=== PATIENT | female | born 1950 | race Caucasian/White ===

== ENCOUNTER 2022-05-06 11:21 | Outpatient (CLI) | payer OTHER, SELFPAY ==
[2022-05-06] MEDS: TETRACAINE 0.5% OPHTH 1 DROP EYE-RIGHT ×2 (11:56→12:28)
[2022-05-06] MEDS: BRIMONIDINE TARTRATE 0.2% OPHTH 1 DROP EYE-RIGHT ×2 (11:58→12:40)
[2022-05-06 12:01] VITALS: BP 149/77; RESP 16; O2SAT 97
--- NOTE | 2022-05-06 15:17 | P.PCN_ITS ---
Procedure Note Will [facility] bill your pro fee for this procedure?: Yes Procedure: SURGEON: Mary Ann Tompkins MD PREOPERATIVE DIAGNOSIS: Posterior capsular opacity, right eye POSTOPERATIVE DIAGNOSIS: Posterior capsular opacity, right eye PROCEDURE: YAG laser capsulotomy, right eye ANESTHESIA: Topical. ESTIMATED BLOOD LOSS: None PATHOLOGY SPECIMEN: None COMPLICATIONS: None INDICATIONS: See consult note for details. The risks, benefits and alternatives of the procedure were explained to the patient, who elected to proceed and signed informed consent to do so. PROCEDURE: The patient was brought to the pre-holding area where the right eye was identified as the operative eye. I placed my initials above this eye. The patient received 2 sets of 1 drop of 0.5% tetracaine and 1 drop of 1% tropicamide. They also received 1 drop of 0.2% brimonidine. They received 1 drop of 0.5% tetracaine immediately prior to bringing them back for the procedure. The patient was then brought to the procedure room where the right eye was again identified as the operative eye. A YAG Abdulaziz capsulotomy lens was placed on the eye. The laser was administered using a total number of 7 shots with an energy of 2.4 mJ per shot for a total energy of 17 mJ. The patient tolerated the procedure well. DISPOSITION: The patient was taken back to the pre-holding area and given 1 drop of 0.2% brimonidine in the right eye. They were discharged to home in stable condition. The patient was instructed to call me or go to the emergency department with any sudden change, including dramatic loss of vision, severe pain in the eye or eyebrow region, nausea, or vomiting. The patient was instructed to use the 0.2% brimonidine 1 drop 2 times a day in the right eye for 1 week. The patient will follow up in the clinic in 1-2 weeks.
== END 2022-05-06 12:41 | disposition home or self-care (01) ==
PROVIDERS: PCP Internal Medicine; Visit Provider Ophthalmology
DX: H26.9 Unspecified cataract (principal)
CPT/HCPCS: 66821; A9270

== ENCOUNTER 2022-05-14 11:04 | Outpatient (CLI) | payer OTHER, SELFPAY ==
--- NOTE | 2022-05-14 11:20 | CRLHL7_ITS ---
For Patients: As a result of the Century Cures Act, medical imaging exams and procedure reports are released immediately into your electronic medical record. You may view this report before your referring provider. If you have questions, please contact your health care provider. BILATERAL MAMMOGRAM WITH COMPUTER-AIDED DETECTION TECHNIQUE: CC and MLO views were obtained. These mammographic images have been obtained using full-field digital technique. These mammographic images were interpreted with the benefit of computer-aided detection. COMPARISON FILM: 10/04/2018. FINDINGS: The breasts are almost entirely fatty IMPRESSION: There is no radiographic evidence for malignancy. ASSESSMENT: BI-RADS Category 2: Benign RECOMMENDATION: Routine screening mammogram in 1 year. A lay language report of this examination will be provided to the patient. Surjit Heck M.D. Diagnostic Radiologist [email or web address] ARNIE/jjennifer jjennifer/Dictated by: Surjit Heck MD @ 05/26/2022 12:15:00 PM (Electronically Signed)
== END 2022-05-14 11:05 | disposition home or self-care (01) ==
LOC: MAMMO 11:05
PROVIDERS: PCP Internal Medicine; Visit Provider Internal Medicine
DX: Z12.31 Encounter for screening mammogram for malignant neoplasm of breast (principal); R92.2 Inconclusive mammogram
CPT/HCPCS: 77063; 77067

== ENCOUNTER 2024-05-04 06:19 | Day surgery (SDC) | payer OTHER, SELFPAY ==
[2024-05-04] VITALS (10 sets, daily range): BP systolic 112–135; BP diastolic 57–67; PULSE 60–71; RESP 16; TEMP 37.2–37.3; O2SAT 94–98; BMI 31.7
[2024-05-04] MEDS: BUPIVACAINE 0.5 %/EPI 1:200K INJECTION (06:00)
--- OUTSIDE RECORDS SUMMARY | 2024-05-04 06:22 | XMS_ITS | Clinical Summary ---
Author Organization [facility] Address [place], [place] [address] Care Team Providers Care Director Of Strategic Partnerships Name Role Phone Pcp, No Primary Care Provider Unavailabl e Allergies Active Allergy Reactions Criticality Noted Date Comments Codeine 10/27/2006 Codeine Shortness Of Breath 05/14/2010 Eucalyptus Itching 01/11/2011 Cephalexin 10/27/2006 Escitalopram Other - Describe In Comment Field 04/25/2007 muscle cramping Medications Medication Sig Dispensed Refills Start Date End Date Status cetirizine (ZyrTEC) 10 mg tabletIndications: Environmental allergies Take 1 Tablet (10 mg) by mouth once daily. 90 tablet. 3 05/05/2021 Active traZODone (DESYREL) 100 mg tabletIndications: Primary insomnia TAKE 2-3 TABLETS BY MOUTH EVERY NIGHT AT BEDTIME needs appointment new PCP 90 Tablet 04/06/2023 Active FLUoxetine (PROZAC) 20 mg capsuleIndications :Depression, reactive Take 1 Capsule (20 mg) by mouth every morning. 30 Capsule 07/02/2023 Active rOPINIRole (REQUIP) 0.25 mg tabletIndications: Restless legs syndrome Take 3 tabs by mouth 2 hours before onset of symptoms 270 Tablet 09/30/2023 Active Active Problems Problem Noted Date Diagnosed Date Mixed hyperlipidemia 06/11/2022 Overview: Last Lipids: Chol: 06/09/2022 243 T06/09/2022 85 HDL: 06/09/2022 66 Non-HDL: 06/09/2022 177 Chol/HDL Ratio: 06/09/2022 3.68 LDL: 06/09/2022 160 LDL DIRECT: . No results found in past 5 years Restless legs syndrome 06/09/2022 Cataract of both eyes 08/09/2017 Adhesive capsulitis of right shoulder 09/17/2015 Overview: MRI 02/04/15 outside, and Orthopedics visit, injection done Ptosis of eyelid, bilateral 01/07/2015 Vitamin D deficiency 07/12/2014 GERD (gastroesophageal reflux disease) 2 Environmental allergies 09/14/2011 Overview: spring and fall Depression, reactive 03/10/2011 Insomnia 03/10/2011 Acoustic neuroma Overview: left side 2004, poor surgical outcome, surgery ' again; residual balance and memory problems, nerves had to be cut during surgery; disabled, did have chemo also Resolved Problems Problem Noted Date Diagnosed Date Resolved Date Erroneous Encounter--Disregard 02/19/2020 06/11/2022 Encounters Date Type Department Care Team Description 03/07/2024 Telephone [facility] [address] [place] [address] Kenn Cintron MD Appointment (Needs Sleep Consult) from Last 3 Months Immunizations Name Administration Dates Next Due COVID-19 vaccine ([employer] 30mcg/0.3mL) EMILY MCKEON 02/11/2021,01/21/2021 Influenza, IIV3 (Age >=3 years) 10/13/20 12,09/14/2011,08/30/2008,2002 Influenza, IIV4 08/09/2017, 6,09/17/2015,2013 Influenza, Inactivated IIV3 (Age 65+ Years) Preserv Free 08/07/2019,10/04/2018 Pneumococcal Poly,23-Valent (Pneumovax) 09/03/2016 Pneumococcal conj 13-Valent (Prevnar 13) 10/04/2018 Td (Age >=7 Years) 11/19/1999 Tdap 03/10/2011 Family History Medical History Relation Name Comments Heart Disease Father [place] 75, Cancer-breast Maternal Aunt 40 s Diabetes Maternal Grandfather Good Health Mother age 92 had stroke Restless legs syndrome Mother Cancer Sister Lung / Cervical Cancer-colon No Family History Cancer-ovarian No Family History Cancer-prostate No Family History Relation Name Status Comments Father Maternal Aunt Maternal Grandfather Mother Sister Alive Social History Tobacco Use Types Packs/Day Years Used Date Smoking Tobacco: Never Smokeless Tobacco: Never Tobacco Cessation:Counseling Given: Yes Alcohol Use Standard Drinks/Week Comments No 0 (1 standard drink = 0.6 oz pur e alcohol) PHQ-2 Answer Date Recorded PHQ-2 TOTAL SCORE 0 06/09/2022 Social Connections Answer Date Recorded Frequency of Communication with Friends and Fami ly Not on file 06/10/2023 Financial Resource Strain Answer Date R ecorded Difficulty of Paying Living Expenses 3 06/09/2022 Difficulty of Paying Living Expenses Not on file 06/09/2022 Food Insecurity Answer Date Recorded Worried About Running Out of Food in the Last Ye ar 1 06/09/2022 Transportation Needs Answer Date Record ed Lack of Transportation (Medical) 1 06/09/2022 Housing Stability Answer Date Recorded Unable to Pay for Housing in the Last Year 1 06/09/2022 Sex and Gender Information Value Date Recorded Sex Assigned at Not on file Gender Identity Not on file Sexual Orientation Not on file Obstetrics History Last Filed Vital Signs Vital Sign Reading Time Taken Comments Blood Pressure 104/72 07/16/2022 8:42 AM CDT Pulse 68 07/16/2022 8:42 AM CDT Temperature 37.1 ??C (98.7 ??F) 06/09/2022 10:42 AM C DT Respiratory Rate 16 07/16/2022 8:42 AM CDT Oxygen Saturation 96% 03/10/2014 12:30 PM CDT Inhaled Oxygen Concentration - - Weight 82.1 kg (181 lb) 07/16/2022 8:42 AM CDT Height 164.4 cm (5' 4.72) 06/09/2022 10:42 AM C DT Body Mass Index 30.38 06/09/2022 10:42 AM CDT Plan of Treatment Health Maintenance Due Date Last Done Comments Colonoscopy through age 75 1997 Zoster (shingles) series for age 50+ (1 of 2) 2002 DEXA/DXA scan for age 65+ 2017 Mammogram for age 45-75 10/13/2019 10/13/20 18, 10/04/2018, 09/03/2016, Additional history exists Tetanus booster 03/10/2021 03/10/2011, 11/19/1999 BMI (ht and wt on same day) for age 18+ 06/09/2023 06/09/2022, 05/05/2021, 10/04/2018, Additional history exists Depression screening for age 12+ 06/09/2023 06/09/2022, 06/09/2022, 05/05/2021, Additional history exists Medicare Wellness for age 65+ 06/10/2023, 05/05/2021, 10/04/2018 COVID-19 vaccine series (3 - 24 season) 2023 02/11/2021, 01/21/2021 Pneumococcal series for age 65+ (3 of 3 - PPSV23 or PCV20) 10/04/2023 10/04/2018, 09/03/2016 Influenza for age 65+ 07/09/2024 08/07/2019 , 10/04/2018, 08/09/2017, Additional history exists Lipids for age 45-75 06/09/2027 06/09/2022, 09/03/2016, 03/10/2011 Tdap Completed 03/10/2011 Hepatitis C screening for ag e 18-79 Completed 06/09/2022 Procedures Procedure Name Priority Date/Time Associated Diagnosis Comments ANTI HCV Routine 06/09/2022 11:43 AM CDT Need for hepatitis C screening test LIPID PANEL W REFLEX MEASURED LDL Routine 06/09/2022 11:43 AM CDT Lipid screening XR MAMMO UNI ADDL VIEWS RIGHT Routine 10/13/2018 9:32 AM TIE INSPECTOR Abnormal mammogram from Last 3 Months or Most Recently Relevant to Health Maintenance Results * (ABNORMAL) LIPID PANEL W REFLEX MEASURED LDL (06/09/2022 11:43 AM CDT) CHOLESTEROL,TOTAL 243(H) 100 - 199 mg/dL 06/10/2022 12:38 AM CDT [facility] TRIGLYCERIDES 85 <150 mg/dL 06/10/2022 12:38 AM CDT [facility] HDL CHOLESTEROL 66 >40 mg/dL 12:38 AM CDT [facility] NON-HDL CHOLESTEROL 177(H) <145 mg/dl 06/10/2022 12:38 AM CDT [facility] CHOL/HDL RATIO 3.68 <4.50 06/10/2022 12:38 AM CDT [facility] LDL CHOLESTEROL 160(H) <=130 mg/dL 06/10/2022 12:38 AM CDT [facility] VLDL CHOLESTEROL 17 <=30 mg/dL 06/10/2022 12:38 AM CDT [facility] PROVIDER ORDERED STATUS RANDOM 06/10/2022 12:38 AM CDT [facility] Blood BLOOD SPECIMEN / Unknown Venipuncture / Unknown 06/09/2022 11:43 AM CDT 06/09/2022 11:45 AM CDT Alessandra Lui MD CHEMISTRY [facility] [address] [place] [address], [place] * ANTI HCV (06/09/2022 11:43 AM CDT) HEPATITIS C ANTIBODY Non-React gabriele Non-React gabriele 06/10/2022 12:59 AM CDT [facility] Comment:Antibodies to HCV no t detected; does not exclude the possibility of exposure to HCV. Blood BLOOD SPECIMEN / Unknown Venipuncture / Unknown 06/09/2022 11:43 AM CDT 06/09/2022 11:45 AM CDT Alessandra Lui MD SEND OUTS [facility] [address] [place] [address], [place] * XR MAMMO UNI ADDL VIEWS RIGHT (10/13/2018 9:32 AM TIE INSPECTOR) Anatomical Region Laterality Modality BREASTS, Breast Right Mammograph y 10/13/2018 9:32 AM TIE INSPECTOR Narrative 10/13/2018 1:04 PM TIE INSPECTOR [facility] XR MAMMO UNI ADDL VIEWS RIGHT 10/13/2018 9:32 AM INDICATION: Abnormal right mammogram. COMPARISON: Priors back to 03/10/2011. MAMMOGRAPHIC FINDINGS: Right full-field digital diagnostic mammogram performed. There are scattered areas of fibroglandular density. At the 12:00 posterior right breast are coarse calcifications. The group measures 6 x 6 mm. Calcifications were present on prior mammograms back to 2014 and there are approximately two new calcifications present since then. The finding is felt to be probably benign. ?? IMPRESSION: ACR BI-RADS Category 3: Probably Benign. Results given to the patient. Six-month follow-up diagnostic mammogram with magnification views is recommended of the right breast. Alessandra Lui MD MAMMO from Last 3 Months or Most Recently Relevant to Health Maintenance Care Teams Director Of Strategic Partnerships Relationship Specialty Start Date End Date Pcp, No . PCP - General 09/07/23
--- NOTE | 2024-05-04 07:46 | P.ORPRC_ITS ---
Procedure Note Date of procedure: 05/04/24 Procedure: Preop diagnosis: Right thumb stenosing tenosynovitis Postop diagnosis: Right thumb stenosing tenosynovitis Procedure: Right thumb A1 rupesh release Anesthesia: Local Surgeon: Andrei Tompkins MD physician office assistant: Ashleigh Parra PA-C EBL: 1mL Complications: None Specimens: None Drains: None Preoperative antibiotics: None Indications: The patient has a history of right thumb painful catching and locking. Despite appropriate non operative management including flexor tendon sheath corticosteroid injections they continue to have symptoms. Operative intervention was recommended. The risks, benefits alternatives and expected outcomes were discussed in detail. These included but were not limited to: Infection, bleeding, injury to blood vessel or nerve, venous thromboembolism. All questions were answered to their satisfaction. The patient was placed supine on the operating room table. Local anesthesia was established with 0.5% Marcaine with epinephrine and 2% lidocaine with epinephrine. The hand was prepped and draped in usual sterile fashion. A transverse incision was made in the MP flexion crease of the thumb. Subcutaneous dissection was taken through the palmar fascia to the flexor tendons with the tenotomy scissors. The A1 rupesh was released with the 15 blade and the tenotomy scissors. The edges of the A1 rupesh were sharply resected. Active flexion and extension of the thumb shows no catching or locking, no bowstringing of the flexor tendons. The wound was closed with interrupted nylon sutures. A dry dressing was applied the tourniquet was released. Sponge and needle counts were correct x 2. The patient tolerated the procedure well, there were no apparent complications. They were sent to same day surgery in satisfactory condition. Plan: Use of the hand as tolerates. Discontinue the intraoperative dressing on postoperative day 3 and may get the wound wet as tolerates. Follow up in the office in 2 weeks for a wound check and suture removal.
[2024-05-04] MEDS: ETHYL CHLORIDE 1 APPLICATION 1 APPLIC TOPICAL (07:50)
--- NOTE | 2024-05-04 07:51 | SUR.PREOP ---
SAME DAY SURGERY LOCAL INJECTION SITE VERIFICATION WAS PERFORMED BY SURGEON/PA AND PATIENT PRIOR TO LOCAL ANESTHETIC BEING INJECTED TO OPERATIVE SITE.right thumb Merle Irving
== END 2024-05-04 08:20 | disposition home or self-care (01) ==
LOC: OR 06:19
PROVIDERS: PCP Internal Medicine; Visit Provider Orthopaedic Surgery
PROC: (CPT 26055; principal; 2024-05-04 07:15)
DX: M65.311 Trigger thumb, right thumb (principal); M65.841 Other synovitis and tenosynovitis, right hand
CPT/HCPCS: 26055; J3490

== ENCOUNTER 2024-09-27 11:17 | Outpatient (CLI) | payer OTHER, SELFPAY ==
--- OUTSIDE RECORDS SUMMARY | 2024-09-27 11:19 | XMS_ITS | Clinical Summary ---
Author Organization [facility] Address [place], [place] [address] Care Team Providers Care Home Appliances Mechanic Name Role Phone Pcp, No Primary Care [...] Noted Date Diagnosed Date Mixed hyperlipidemia 06/11/2022 Overview (06/11/2022): Last Lipids: Chol: 06/09/2022 243 T06/09/2022 85 HDL: 06/09/2022 66 Non-HDL: 06/09/2022 177 Chol/HDL Ratio: 06/09/2022 3.68 LDL: 06/09/2022 160 LDL DIRECT: . No results found in past 5 years Restless legs syndrome 06/09/2022 Cataract of both eyes 08/09/2017 Adhesive capsulitis of right shoulder 09/17/2015 Overview (09/17/2015): MRI 02/04/15 outside, and Orthopedics visit, injection done Ptosis of eyelid, bilateral 01/07/2015 Vitamin D deficiency 07/12/2014 GERD (gastroesophageal reflux disease) 2 Environmental allergies 09/14/2011 Overview (09/14/2011): spring and fall Depression, reactive 03/10/2011 Insomnia 03/10/2011 Acoustic neuroma Overview (10/04/2018): left side 2004, poor surgical outcome, surgery '06 again; residual balance and memory problems, nerves had to be cut during surgery; disabled, did have chemo also Resolved Problems Problem Noted Date Diagnosed Date Resolved Date Erroneous Encounter--Disregard 02/19/2020 06/11/2022 Immunizations Name Administration Dates Next Due COVID-19 vaccine ([employer] 30mcg/0.3mL) PF, MDV 02/11/2021,01/21/2021 Influenza, IIV3 (Age >=3 years) 10/13/20 12,09/14/2011,08/30/2008,2002 Influenza, IIV4 08/09/2017, 6,09/17/2015,2013 Influenza, Inactivated IIV3 (Age 65+ Years) Preserv Free 08/07/2019,10/04/2018 Pneumococcal Poly,23-Valent (Pneumovax) 09/03/2016 Pneumococcal conj 13-Valent (Prevnar 13) 10/04/2018 Td (Age >=7 Years) 11/19/1999 Tdap 03/10/2011 Family History Medical History Relation Name Comments Heart Disease Father [place] 75, Cancer-breast Maternal Aunt 40 s Diabetes [...] 68 07/16/2022 8:42 AM CDT Temperature 37.1 C (98.7 F) 06/09/2022 10:42 AM CDT Respiratory Rate 16 07/16/2022 8:42 AM CDT [...] Wellness for age 65+ 06/10/2023, 05/05/2021, 10/04/2018 Pneumococcal series for age 65+ (3 of 3 - PPSV23 or PCV20) 10/04/2023 10/04/2018, 09/03/2016 COVID-19 vaccine series (3 - season) 2024 02/11/2021, 01/21/2021 Influenza for age 65+ 07/09/2024 08/07/2019 , [...] ADDL VIEWS RIGHT Routine 10/13/2018 9:32 AM INTERVIEWING CLERK Abnormal mammogram from Last 3 Months or Most Recently Relevant to Health Maintenance Results * (ABNORMAL) LIPID PANEL W REFLEX MEASURED LDL (06/09/2022 11:43 AM CDT) CHOLESTEROL,TOTAL 243(H) 100 - 199 mg/dL 06/10/2022 12:38 AM CDT [facility] TRIGLYCERIDES 85 <150 mg/dL 06/10/2022 12:38 AM CDT [facility] HDL CHOLESTEROL 66 >40 mg/dL 12:38 AM CDT [facility] NON-HDL CHOLESTEROL 177(H) <145 mg/dl 06/10/2022 12:38 AM CDT [facility] CHOL/HDL RATIO 3.68 <4.50 06/10/2022 12:38 AM CDT [facility] LDL CHOLESTEROL 160(H) <=130 mg/dL 06/10/2022 12:38 AM CDT [facility] VLDL CHOLESTEROL 17 <=30 mg/dL 06/10/2022 12:38 AM CDT [facility] PROVIDER ORDERED STATUS RANDOM 06/10/2022 12:38 AM CDT [facility] Blood BLOOD SPECIMEN / Unknown Venipuncture / Unknown 06/09/2022 11:43 AM CDT 06/09/2022 11:45 AM CDT Alessandra Lui MD CHEMISTRY [facility] [address] [place] [address], * ANTI HCV (06/09/2022 11:43 AM CDT) HEPATITIS C ANTIBODY Non-React gabriele Non-React gabriele 06/10/2022 12:59 AM CDT [facility] Comment:Antibodies to HCV no t detected; does not exclude the possibility of exposure to HCV. Blood BLOOD SPECIMEN / Unknown Venipuncture / Unknown 06/09/2022 11:43 AM CDT 06/09/2022 11:45 AM CDT Alessandra Lui MD SEND OUTS [facility] [address] [place] [address], * XR MAMMO UNI ADDL VIEWS RIGHT (10/13/2018 9:32 AM INTERVIEWING CLERK) Anatomical Region Laterality Modality BREASTS, Breast Right Mammograph y 10/13/2018 9:32 AM INTERVIEWING CLERK Narrative 10/13/2018 1:04 PM INTERVIEWING CLERK [facility] XR MAMMO UNI ADDL VIEWS [...] finding is felt to be probably benign. IMPRESSION: ACR BI-RADS Category 3: Probably Benign. Results given to the patient. Six-month follow-up diagnostic mammogram with magnification views is recommended of the right breast. Alessandra Lui MD MAMMO from Last 3 Months or Most Recently Relevant to Health Maintenance Care Teams Home Appliances Mechanic Relationship Specialty Start Date End Date Pcp, No . PCP - General 09/07/23
--- NOTE | 2024-09-27 11:30 | CRLHL7_ITS ---
For Patients: As a result of the Century Cures Act, medical imaging exams and procedure reports are released immediately into your electronic medical record. You may view this report before your referring provider. If you have questions, please contact your health care provider. BILATERAL SCREENING MAMMOGRAM WITH COMPUTER-AIDED DETECTION AND TOMOSYNTHESIS TECHNIQUE: CC and MLO views were obtained. These mammographic images have been obtained using full-field digital technique. These mammographic images were interpreted with the benefit of computer-aided detection. Breast Tomosynthesis was used in this interpretation. COMPARISON FILM: 05/14/22, 10/04/18. FINDINGS: There are scattered areas of fibroglandular density IMPRESSION: There is no radiographic evidence for malignancy. ASSESSMENT: BI-RADS Category 1: Negative RECOMMENDATION: Routine screening mammogram in 1 year. A lay language report of this examination will be provided to the patient. Surjit Heck M.D. Diagnostic Radiologist [email or web address] ARNIE/hira Transcribed: 2:27 p.miguel ángel iniguez/Dictated by: Surjit Heck MD @ 09/28/2024 10:07:00 AM (Electronically Signed)
== END 2024-09-27 11:18 | disposition home or self-care (01) ==
LOC: MAMMO 11:18
PROVIDERS: PCP Internal Medicine; Visit Provider Internal Medicine
DX: Z12.31 Encounter for screening mammogram for malignant neoplasm of breast (principal)
CPT/HCPCS: 77063; 77067

== ENCOUNTER 2024-11-09 12:37 | Day surgery (SDC) | payer OTHER, SELFPAY ==
[2024-11-09] MEDS: LIDOCAINE 1%-EPI 1:100,000 20 ML INFILTRATI (13:02)
[2024-11-09 13:04] VITALS: BP 119/77; PULSE 80; RESP 16; TEMP 36.7; O2SAT 95; BMI 31.7
[2024-11-09] MEDS: BUPIVACAINE 0.25 %/EPI 1:200K 30 ml 4.5 ML INJECTION (13:09)
--- NOTE | 2024-11-09 13:16 | SUR.PREOP ---
SAME DAY SURGERY LOCAL INJECTION SITE VERIFICATION WAS PERFORMED BY SURGEON/PA AND PATIENT PRIOR TO LOCAL ANESTHETIC BEING INJECTED TO OPERATIVE SITE.
[2024-11-09 13:48] VITALS: BP 133/64; PULSE 74; RESP 16; O2SAT 95
[2024-11-09 13:54] VITALS: BP 121/60; PULSE 63; RESP 16; O2SAT 94
[2024-11-09 14:00] VITALS: BP 121/62; PULSE 64; RESP 16; O2SAT 94
[2024-11-09 14:05] VITALS: BP 119/60; PULSE 60; RESP 16; O2SAT 97
[2024-11-09 14:13] VITALS: BP 144/73; PULSE 72; RESP 16; TEMP 37.1; O2SAT 97
--- NOTE | 2024-11-09 14:16 | P.ORPRC_ITS ---
Procedure Note Date of procedure: 11/09/24 Procedure: Preop diagnosis: Left hand ring finger stenosing tenosynovitis Postop diagnosis: Left hand ring finger stenosing tenosynovitis Procedure: Left hand ring finger A1 rupesh release Anesthesia: Local Surgeon: Andrei Tompkins MD marketing administrative assistant: WEST Fontaine EBL: 0 mL Complications: None Specimens: None Drains: None Preoperative antibiotics: None Indications: The patient has a history of left upper extremity ring finger painful catching and locking. Despite appropriate non operative management including flexor tendon sheath corticosteroid injections they continue to have symptoms. Operative intervention was recommended. The risks, benefits alternatives and expected outcomes were discussed in detail. These included but were not limited to: Infection, bleeding, injury to blood vessel or nerve, venous thromboembolism. All questions were answered to their satisfaction. The patient was placed supine on the operating room table. Local anesthesia was established with 0.5% Marcaine with epinephrine and 2% lidocaine with epinephrine. The hand was prepped and draped in usual sterile fashion. A transverse incision was made centered over the base of the ring finger in the distal palmar crease. Subcutaneous dissection was taken through the palmar fascia to the flexor tendons with the tenotomy scissors. The A1 rupesh was released with the 15 blade and tenotomy scissors. Active flexion and extension of the finger shows no catching or locking, no bowstringing of the flexor tendons. The wound was closed with interrupted nylon sutures. A dry dressing was applied. Sponge and needle counts were correct x 2. The patient tolerated the procedure well, there were no apparent complications. They were sent to same day surgery in satisfactory condition. Plan: Use of the hand as tolerates. Discontinue the intraoperative dressing on postoperative day 3 and may get the wound wet as tolerates. Follow up in the office in 2 weeks for a wound check and suture removal.
== END 2024-11-09 14:33 | disposition home or self-care (01) ==
LOC: OR 12:40
PROVIDERS: PCP Internal Medicine; Visit Provider Orthopaedic Surgery
PROC: (CPT 26055; principal; 2024-11-09 14:15)
DX: M65.342 Trigger finger, left ring finger (principal); M65.842 Other synovitis and tenosynovitis, left hand
CPT/HCPCS: 26055

== ENCOUNTER 2025-01-18 07:19 | Day surgery (SDC) | payer OTHER, SELFPAY ==
[2025-01-18] VITALS (9 sets, daily range): BP systolic 116–133; BP diastolic 58–82; PULSE 65–85; RESP 15–17; TEMP 36.5; O2SAT 93–99
[2025-01-18] MEDS: BUPIVACAINE 0.5 %/EPI 1:200K INJECTION (07:50)
[2025-01-18] MEDS: LIDOCAINE 1%-EPI 1:100,000 20 ML INFILTRATI (07:50)
--- NOTE | 2025-01-18 08:17 | SUR.OPER ---
PATIENT QUESTIONS ANSWERED SATISFACTORILY PREOPERATIVELY. PATIENT BROUGHT TO OR #2 PER WHEELCHAIR. Patient positioned supine on OR #2 bed. The perioperative team supported arms bilaterally on arm boards. Final approval of positioning by surgeon.
--- NOTE | 2025-01-18 08:28 | P.ORPRC_ITS ---
Procedure Note Date of procedure: 01/18/25 Procedure: Preop diagnosis: Right upper extremity carpal tunnel syndrome Postop diagnosis: Right upper extremity carpal tunnel syndrome Procedure: Right upper extremity carpal tunnel release Anesthesia: Local Surgeon: Andrei Tompkins MD clinical education assistant: MICAH Zheng EBL: 2mL Complications: None Specimens: None Drains: None Indications: The patient has a history of right upper extremity carpal tunnel syndrome sympto ms. Despite appropriate nonoperative management consisting of nighttime bracing and occupational therapy they continue to have symptoms. Operative intervention was recommended. The risks, benefits alternatives and expected outcomes were discussed in detail. These included but were not limited to: Infection, bleeding, injury to blood vessel or nerve, venous thromboembolism. All questions were answered to their satisfaction. The patient was placed supine on the operating room table. Local anesthesia was established with 0.5% Marcaine with epinephrine and 2% lidocaine with epinephrine. The hand was prepped and draped in usual sterile fashion. A longitudinal incision was made centered over the radial border of the ring finger at the base of the palm. Subcutaneous dissection was sharply taken through the palmar fascia and the palmaris brevis to the transverse carpal ligament. The ligament was divided in line with the incision. Proximal and distal dissection was carried with tenotomy and Metzenbaum scissors for a wide decompression of the carpal tunnel. The wound was closed with a 3-0 nylon. A bulky dry dressing was applied, sponge and needle counts were correct x 2. The patient tolerated the procedure well, there were no apparent complications. They were sent to same day surgery in satisfactory condition. Plan: Use of the hand as tolerates. Discontinue the intraoperative dressing on postoperative day 3 and may get the wound wet as tolerates. Follow up in the office in 2 weeks for a wound check and suture removal.
== END 2025-01-18 09:05 | disposition home or self-care (01) ==
LOC: OR 07:19
PROVIDERS: PCP Internal Medicine; Visit Provider Orthopaedic Surgery
PROC: (CPT 64721; principal; 2025-01-18 08:15)
DX: G56.01 Carpal tunnel syndrome, right upper limb (principal)
CPT/HCPCS: 64721; J3490

== ENCOUNTER 2025-01-24 08:45 | Outpatient (CLI) | payer OTHER, SELFPAY | END 2025-01-24 08:46 | disposition home or self-care (01) | LOC: NFLDREF 08:47 | PROVIDERS: PCP Internal Medicine; Visit Provider Internal Medicine | DX: R55 Syncope and collapse (principal) | CPT/HCPCS: 80053 ==

== ENCOUNTER 2025-01-25 10:00 | Outpatient (CLI) | payer OTHER, SELFPAY | END 2025-01-25 10:01 | disposition home or self-care (01) | LOC: NFLDREF 01-27 19:40 | PROVIDERS: PCP Internal Medicine; Referring Provider Internal Medicine; Visit Provider Internal Medicine | DX: R55 Syncope and collapse (principal) | CPT/HCPCS: 87086 ==

== ENCOUNTER 2025-04-12 13:00 | Outpatient (RCR) | payer OTHER, SELFPAY ==
--- NOTE | 2024-12-28 15:23 | OT.OPODN ---
OT Outpatient Ortho Daily Note OT Outpatient Ortho Daily Note* Start: 12/05/24 09:48 Freq: Status: Active Protocol: Document 12/28/24 13:00 CSS (Rec: 12/28/24 15:20 CSS [id number]) E-signed By Ilsa Tong OTR/L Type of Note Type of Note Type of Note Daily Note,Re-Evaluation Visit Number 8 Comments received additional order for R carpal tunnel- 12/27/24 Insurance Information Insurance Information Medicare B,[employer] Outpatient History/Precautions Current Condition/Medical Diagnosis Referring Provider Dr. Tompkins Medical Diagnoses Z98.890 G56.01-Carpal tunnel syndrome, right upper limb Treatment Diagnosis Left pain in joints of hand M25.542 Left pain in fingers M79.645 Left hand instability M25.342 right pain in hand- M79.641 right hand instability-M25.341 right wrist instability- M25. 331 Date of Onset 11/2024 Other Conditions Trigger finger release on R thumb in February 2024. Medical/Functional History Medical History Reviewed Yes Prior Level of Function/Mobility indep with ADLs and IADLs; currently retired Social History Employment Status Retired Oriented Mental Status No Concerns Ortho Subjective Subjective Subjective Pt having significant pain in R hand after trigger finger release in L hand; pt noted increase with doing more with R hand as well as doing scar massage with R to her L hand. Pt has brace from ortho and reports doesn't fit well and would like OT's input; after OT adjusts and sets on pt, pt reports if feels more comfortable. Pain Assessment Pain Pain Yes Pain Comments L hand 2/10 with AROM R hand 6/10 w/ field collector OT OP Daily Ortho Note/Assessment Manual Therapy Manual Therapy Minutes (minutes) 15 Manual Therapy Comments scar massage completed on L ring finger scar in circular, vertical, and horizontal motion to break down scar tissue to prevent adhesion to increase ROM and reduce pain to promote function. Pt provided with padding to help reduce irritation when wearing wrist splint. Instrument assisted soft tissue mobilization completed with graston tool on palm of L hand to control edema, increase ROM, and help decrease pain to promote functional use in LUE. Pt educated how she can complete at home with wrench style tool . Self-Care/Home Management Self-Care/Home Management Minutes ( 15 minutes) Self-Care/Home Management Comments education on carpal tunnel and how to help reduce symptoms such as resting hand, avoiding gripping and overuse of wrist flexion/extension, wearing brace at night and during repetitive activities, ice to reduce inflammation and nerve glides. OT adjusts pt's R wrist splint to help increase comfort and helps educate how to position so she can wear at night when sleeping and during day during repetitive tasks. OT also encourages wearing a widget during day to avoid over flexion/ extension of R hand. OT also encourages pt to ask family for more assistance to avoid overuse of R hand. Pt verbalizes understanding. Ultrasound Ultrasound Minutes (minutes) 8 Ultrasound Location & Joint Position R wrist Ultrasound Frequency & Mode 1 MHz Pulsed Intensity (w/cm2) 1.5 Ultrasound Comments Precautions and contraindications of US completed. Pt in agreement to US. Skin assessed before and after US treatment- no redness or open skin. Ultrasound completed to reduce edema, break down scar tissue, and increase circulation to promote healing and functional use of UE. Total Occupational Therapy Time Occupational Therapy Minutes 38 Home Program Home Program Home Program Initiated,Compliant Home Program Specifics wrist splint at night; ice on R wrist; decrease activities with R hand/UE; pads for wrist splint; tubi dredge hand; scar pad; contrast bath nerve glides: radial, ulnar, and median theraputty to provide desensitization. Scar massage, ice, compression gloves and PROM exercises ( see below); Exercises - Seated Finger PIP Flexion PROM - 3 x daily - 7 x weekly - 1 sets - 10 reps - Hand PROM DIP Flexion - 3 x daily - 7 x weekly - 1 sets - 10 reps - Seated Finger MP PROM - 3 x daily - 7 x weekly - 1 sets - 10 reps - Seated Finger Composite Flexion Extension - 3 x daily - 7 x weekly - 1 sets - 10 reps Range of Motion and Strength Hand/Finger/Thumb Range of Motion and Strength Hand/Finger/Thumb Range of Motion and L hand: <.5 cm gap between Strength ring finger and palm and making full fist. Hand Pinch/Airplane Refueler Strength Hand Pinch/Airplane Refueler Strength Hand Pinch/Airplane Refueler Strength Left Hand,Right Hand Left Hand Airplane Refueler Strength Position 1 in Elbow 35 Flexion (lbs) Lateral Pinch Strength (lbs) 14 Right Hand Airplane Refueler Strength Position 1 in Elbow 27 Flexion (lbs) Lateral Pinch Strength (lbs) 11 OT Objective Data Hand Hand Dominance Right Upper Extremity Special Tests Median Nerve-Carpal Tunnel Wrist Phalen Test Positive Right Wrist Tinel Test Positive Right Dexterity Dexterity Dexterity Left Hand,Right Hand Left Hand Scoring Times 9-Hole Peg Hand Test Scoring Time ( 27 seconds) Right Hand Scoring Times 9-Hole Peg Hand Test Scoring Time ( 25 seconds) OT Problems Problems Problems Decreased Strength,Decreased Range of Motion,Pain,Decreased Coordination,Sensory Sensitivity,Lifting,Gripping, Pinching Problems Comments Pt scored 43/80 on Upper Extremity Functional Index ( UEFI) tool. Other Problems Opening Containers,Computer, Fasteners Patient Potential Excellent Assessment Assessment Assessment Pt is a 74 year old female who is referred to OT post op trigger finger release of L ring finger which was completed on 11/09/2024.Pt has been seen by OT for L hand in November due to symptoms of pain, weakness, and decreased ROM impacting her indep with ADLs/IADLs . Pt would benefit from ongoing skilled OT to increase ROM, decrease pain, and increase strength in order to maximize indep and return to prior level functional baseline. Pt has noted increased pain and numbness/ tingling in R hand since surgery on L hand; pt feels she is overusing R hand and notes increased pain when doing scar massage with R hand to L hand. New orders from ortho to also see pt for carpal tunnel in R hand. Recommending OT will work with pt also on R hand symptoms of weakness, increased pain, and numbness/tingling which are impacting indep with function of R hand. Occupational Therapy Treatment Plan - OP Potential Rehabilitation Potential Excellent Set Goals Goals Set with Patient Yes Goals Goals Goals to be met by 02/13/25: 1) Pt will return to prior level functional status with L hand. 2) Pt will note decrease in pain to 2/10 with functional gripping activities.- progressing. 3) Pt will demonstrate increased AROM in L ring finger flexion at MCP, PIP, and DIP joints as demonstrated by making full composite grasp. - progressing 4) Pt L field collector strength will increase to 25# in order to complete functional gripping activities. - GOAL MET 12/28/24 5) Pt will note decreased R hand pain to 2/10 with gripping activities in 2 consistent sessions. 6) Pt will increase R field collector strength to 40# or more to promote functional use of RUE. 7) Pt will note no numbness or tingling in R hand in 2 consistent sessions or more. Treatment Plan Treatment Plan Evaluation,Edema Control,Joint Mobilization,Manual Therapy, Ultrasound,Wound Care/Scar Management,Therapeutic Exercise,Therapeutic Activities,Self Care/Home Management,Education Expected Frequency 1-2x Week Expected Duration 8-10 Weeks Occupational Therapy Billing Units Treatment Minutes Untimed Treatment Minutes 0 Timed Treatment Minutes 38 Total Treatment Minutes 38 Billing Units Manual Therapy 1 Self Care/Home Management 1 Ultrasound 1 Certification Statement Certification Statement I Certify That: Therapy Services Provided, Therapy Plan Established, Therapy Plan Reviewed Recertification Information Recertification Information Initial Certification Date 12/05/24 Recertification Start Date 12/28/24 Recertification Due Date 02/13/25
--- NOTE | 2025-02-01 14:35 | OT.OPOE ---
OT Outpatient Ortho Eval OT Outpatient Ortho Eval* Start: 12/05/24 08:35 Freq: Status: Active Protocol: Document 02/01/25 13:15 CSS (Rec: 02/01/25 14:35 CSS [id number]) E-signed By Ilsa Tong, OTR/L OT OP Ortho Eval Details Complexity Complexity Low Insurance Information Insurance Information Medicare B,[employer] Outpatient History/Precautions Current Condition/Medical Diagnosis Referring Provider THEODORE Childress Medical Diagnoses Z98.890- carpal tunnel surgery of R wrist Treatment Diagnosis pain in wrist(R)- M25.531 wrist instability (R)- M25.331 hand instability (R) - M25.341 Date of Onset 01/18/25 Other Conditions 11/09/24- trigger finger release- L hand Medical/Functional History Medical History Reviewed Yes Prior Level of Function/Mobility indep with ADLs/IADLs Oriented Mental Status No Concerns Ortho Subjective Subjective Subjective Pt reports slowly feeling better with less numbness and less pain. Pain Assessment Pain Pain Comments R hand at rest: 0/10 R with activity: 7/10 Range of Motion and Strength Wrist Range of Motion and Strength Wrist Range of Motion and Strength R: wrist flexion: 66 wrist extension: 23 L: wrist flexion: 78 wrist extension: 46 Hand/Finger/Thumb Range of Motion and Strength Hand/Finger/Thumb Range of Motion and R hand: Strength digits WNL Hand Pinch/Caustic Room Operator Strength Comments Comments not testing gold assayer and pinch test today due to pain and recommendation to not strengthen until 4 weeks post op; will assess at 02/15/25 or later. OT Objective Data Hand Hand Dominance Right Skin/Wounds/Edema Comments incision closed; some dry flaking; pinkness around incision Sensation Sensation Assessment Summary Comments numbness in 2-5th digits; pt reports only happened a few times in last week; does not some numbness in palm. Dexterity Dexterity Dexterity Left Hand,Right Hand Left Hand Scoring Times 9-Hole Peg Hand Test Scoring Time ( 29 seconds) Right Hand Scoring Times 9-Hole Peg Hand Test Scoring Time ( 35 seconds) OT Problems Problems Problems Decreased Strength,Decreased Range of Motion,Decreased Dexterity,Pain,Decreased Coordination,Sensory Sensitivity,Lifting,Gripping, Pinching Problems Comments eating; brushing teeth; completing grooming/hygiene tasks; utilizing utensils; Other Problems Writing,Opening Containers, Dressing,Fasteners,Sleeping Patient Potential Excellent Assessment Assessment Assessment Pt is a 74 year old female who was seen by OT previously due to carpal tunnel symptoms. Pt was not able to find relief from therapy with conservative management so had carpal tunnel release on 01/18/25 on R wrist. Currently, pt is still experiencing pain, swelling, limited ROM, and weakness in R hand impacting her indep with ADLs/IADLs as she is R hand dominant. Recommend skilled OT to help decrease above symptoms and to educate on compensatory strategies or AE to help while pt is healing. Occupational Therapy Treatment Plan - OP Potential Rehabilitation Potential Excellent Set Goals Goals Set with Patient Yes Goals Goals Goals to be met by 04/12/25: 1) Pt will increase R wrist flexion to 78 degrees or more. 2) Pt will increase R wrist extension to 46 degrees or more. 3) Pt will verbalize completion of HEP in order to progress towards goals. 4) Pt will increase R gold assayer strength to 50 lb or more. Treatment Plan Expected Frequency 1-2x Week Expected Duration 8-10 Weeks Home Program Home Program Home Program Initiated Home Program Specifics wrist AROM; tendon glides; scar massage Certification Certification Statement I Certify That: Therapy Services Provided, Therapy Plan Established, Therapy Plan Reviewed Certification Information Clinic ID # [id number] Initial Certification Date 02/01/25 Recertification Due Date 04/12/25 Provider Signature Required Yes Provider Signature Shows Agreement With POC & Medical Necessity Physician NPI Number Write NPI# Here Physician Comment/Change Comment or Changes Physician Signature & Date Requested Please Sign/Date Here
== END 2025-04-12 14:02 | disposition home or self-care (01) ==
PROVIDERS: PCP Internal Medicine; Visit Provider Orthopaedic Surgery
DX: Z48.89 Encounter for other specified surgical aftercare (principal); M25.542 Pain in joints of left hand; M79.645 Pain in left finger(s); M25.531 Pain in right wrist; Z51.89 Encounter for other specified aftercare
CPT/HCPCS: 97035; 97110; 97140; 97165; 97535; X5282

== ENCOUNTER 2025-07-22 09:46 | Emergency (ER) | payer OTHER, SELFPAY ==
--- OUTSIDE RECORDS SUMMARY | 2025-07-22 09:48 | XMS_ITS | Clinical Summary ---
Author Organization [facility] Address [address] [place] [id number] Care Team Providers Care Stock Checkerer Name Role Phone Pcp, No Primary Care Provider Unavailabl e Allergies Active Allergy Reactions Criticality Noted Date Comments Codeine 10/27/2006 Codeine Shortness Of Breath 05/14/2010 Eucalyptus Itching 01/11/2011 Cephalexin 10/27/2006 Escitalopram Other - Describe In Comment Field 04/25/2007 muscle cramping Medications cetirizine (ZyrTEC) 10 mg tabletIndicatio ns:Environmenta l allergies Take 1 Tablet (10 mg) by mouth once daily. 90 tablet. 3 1 Active traZODone (DESYREL) 100 mg tabletIndicatio ns:Primary insomnia TAKE 2-3 TABLETS BY MOUTH EVERY NIGHT AT BEDTIME needs appointment new PCP 90 Tablet 3 Active FLUoxetine (PROZAC) 20 mg capsuleIndicati ons:Depression, reactive Take 1 Capsule (20 mg) by mouth every morning. 30 Capsule 3 Active rOPINIRole (REQUIP) 0.25 mg tabletIndicatio ns:Restless legs syndrome Take 3 tabs by mouth 2 hours before onset of symptoms 270 Tablet 3 Active Active Problems Problem Noted Date Diagnosed [...] Resolved Date Erroneous Encounter--Disregard 02/19/2020 06/11/2022 Immunizations Immunization Administration Dates Next Due COVID-19 vaccine (Blue Box NTech 30mcg/0.3mL) PF, MDV 02/11/2021,01/21/2021 Influenza, IIV3 (Age >=3 years) 10/13/20 12,09/14/2011,08/30/2008,2002 Influenza, IIV4 08/09/2017, 6,09/17/2015,2013 Influenza, Inactivated IIV3 (Age 65+ Years) Preserv Free 08/07/2019,10/04/2018 Pneumococcal Poly,23-Valent (Pneumovax) 09/03/2016 Pneumococcal conj 13-Valent (Prevnar 13) 10/04/2018 Td (Age >=7 Years) 11/19/1999 Tdap 03/10/2011 Family History Medical History Relation Name Comments Heart Disease Father [place] 75, Cancer-breast Maternal Aunt 40 s Diabetes [...] of Communication with Friends and Fami ly 0 06/09/2022 Financial Resource Strain Answer Date R ecorded [...] Housing in the Last Year 1 06/09/2022 Comments No Sex and Gender Information Value Date Recorded Sex Assigned at Not on file Legal Sex 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 Gender Identity Not on file Sexual Orientation Not on file 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, was a teacher Not on file Not on file Not on f ile Obstetrics History Last Filed Vital Signs Vital [...] history exists Medicare Wellness for age 65+ 06/10/2023 06/09/2022, 05/05/2021, 10/04/2018 Pneumococcal series for age 50+ (3 of 3 - PCV20 or PCV21) 10/04/2023 10/04/2018, 09/03/2016 COVID-19 vaccine series (3 - season) 2025 02/11/2021, 01/21/2021 Influenza Vaccine (#1) 2025 9, 10/04/2018, 08/09/2017, Additional history exists Lipids for age 45-75 06/09/2027 06/09/2022, 09/03/2016, 03/10/2011 RSV vaccine for adults or (1 - 1-dose 75+ series) 2027 Hepatitis C screening for age 18-79 Completed 06/09/2022 Hepatitis B series for 19+ Aged Out N o longer eligible based on patient's age to complete this topic Procedures Procedure Name Priority Date/Time Associated Diagnosis Comments ANTI HCV Routine 06/09/2022 11:43 AM CDT Need for hepatitis C screening test LIPID PANEL W REFLEX MEASURED LDL Routine 06/09/2022 11:43 AM CDT Lipid screening XR MAMMO UNI ADDL VIEWS RIGHT Routine 10/13/2018 9:32 AM FRUIT PICKER MACHINE OPERATOR Abnormal mammogram from Last 3 Months or Most Recently Relevant to Health Maintenance Results * (ABNORMAL) LIPID PANEL W REFLEX MEASURED LDL (06/09/2022 11:43 AM CDT) CHOLESTEROL,TOTAL 243(H) 100 - 199 mg/dL 06/10/2022 12:38 AM CDT [facility] TRIGLYCERIDES 85 <150 mg/dL 06/10/2022 12:38 AM CDT [facility] HDL CHOLESTEROL 66 >40 mg/dL 12:38 AM CDT [facility] NON-HDL CHOLESTEROL 177(H) <145 mg/dl 06/10/2022 12:38 AM CDT [facility] CHOL/HDL RATIO 3.68 <4.50 06/10/2022 12:38 AM CDT [facility] LDL CHOLESTEROL 160(H) <=130 mg/dL 06/10/2022 12:38 AM CDT [facility] VLDL CHOLESTEROL 17 <=30 mg/dL 06/10/2022 12:38 AM CDT [facility] PROVIDER ORDERED STATUS RANDOM 06/10/2022 12:38 AM CDT [facility] Blood BLOOD SPECIMEN / Unknown Venipuncture / Unknown 06/09/2022 11:43 AM CDT 06/09/2022 11:45 AM CDT Alessandra Lui MD CHEMISTRY Nelly l Result [facility] [address] [place] [address], * ANTI HCV (06/09/2022 11:43 AM CDT) Pathologist [facility] HEPATITIS C ANTIBODY Non-React gabriele Non-React gabriele 06/10/2022 12:59 AM CDT [facility] Comment:Antibodies to HCV no t detected; does not exclude the possibility of exposure to HCV. Blood BLOOD SPECIMEN / Unknown Venipuncture / Unknown 06/09/2022 11:43 AM CDT 06/09/2022 11:45 AM CDT us Alessandra Lui MD SEND OUTS Nelly l Result [facility] [address] [place] [address], * XR MAMMO UNI ADDL VIEWS RIGHT (10/13/2018 9:32 AM FRUIT PICKER MACHINE OPERATOR) Anatomical Region Laterality Modality BREASTS, Breast Right Mammograph y 10/13/2018 9:32 AM FRUIT PICKER MACHINE OPERATOR Narrative 10/13/2018 1:04 PM FRUIT PICKER MACHINE OPERATOR [facility] XR MAMMO UNI ADDL VIEWS [...] the right breast. Alessandra Lui MD MAMMO Nelly l Result from Last 3 Months or Most Recently Relevant to Health Maintenance Insurance MEDICARE PART B HB ONLY [employer] CHOICE PPO MR Care Teams Stock Checkerer Relationship Specialty Start Date End Date PcpLara PCP - General 09/07/23
--- OUTSIDE RECORDS SUMMARY | 2025-07-22 09:48 | XMS_ITS | Clinical Summary ---
Author Organization [facility] Address [address] , [address] [place] [address] Phone Care Team Providers Care Lymphedema Therapist Name Role Phone [facility] Unavailable Unava ilable Conditions or Problems Problem Name Problem Code Onset Date Status Entry Date Provider Comment Standard Description Annotate Hand numbness 535329583 (SNOMED CT) Active Robert Zhao MD Numbness of hand Median neuropathy, right 069824940 (SNOMED CT) Active Robert Zhao MD Median neuropathy Medications No information available. Medications Administered No information available. Allergies, Adverse Reactions, Alerts No information available. Results Date Name Value Unit Range Flag Description Internal Other: Authorizatio n AUTHBENEFIT Yes Authoriza tion: Assignment of Benefits and Payment Agreement [email or web address] Yes Authorizat ion: Authorization for [facility] to leave messages, voicemail, send text messages, send emails AUTHRELHCARE Yes Authoriz ation: Release/Retrieval of Information to/from Healthcare Facilities, Pharmacy Benefit Payers and Providers ROIAUTHOTHER Yes Authoriz ation: Release of Information - Authorize Others/Insurance - Payment and Healthcare Operations [email or web address] Yes Authoriza tion: Release of Information - Authorize [facility] - Payment and Healthcare Operations AUTHPRIVPRAC Yes Authoriz ation: Notice of privacy practices HIECONSENT Yes Consent To Release information to the Health Information Exchange (HIE) Internal Other: Verbal Autho rization/Emergency Contact VERBAL_EMER Done Verbal au thorization and emergency contact Plan of Care No information available. Procedures Code Procedure Name Date Entry Date CPT-63079 Nerve Conduction 9-10 studies CPT-00161 EMG with NCS (5+ muscles) - 1 limb 12/21 Vital Signs No information available. Immunizations No information available. Advance Directives No information available.
[2025-07-22 10:11] VITALS: BP 119/74; PULSE 71; RESP 16; TEMP 36.8; O2SAT 95; BMI 32.5
--- NOTE | 2025-07-22 10:42 | CRLHL7_ITS ---
For Patients: As a result of the Century Cures Act, medical imaging exams and procedure reports are released immediately into your electronic medical record. You may view this report before your referring provider. If you have questions, please contact your health care provider. Indication : Off balance. Remote history left vestibular schwannoma surgery. Technique : CT of the brain without intravenous contrast. Comparison: None relevant available at the time of interpretation. Findings: Prior postsurgical changes of left temporal craniotomy surgical tract extending into the left cerebellopontine angle region. No acute blurring of the tucker-white differentiation. There is no intracranial hemorrhage. The ventricles are proportionate to the cerebral sulci. The 4th ventricle is midline. Basal cisterns appear patent. No abnormal extra-axial fluid collection identified. Mild parenchymal volume loss. There is mild patchy periventricular hypodensity, favored to represent chronic ischemic microvascular disease. There is no intracranial mass, mass effect or midline shift identified. No depressed calvarial fracture. Impression: 1. No acute intracranial process. 2. Mild chronic ischemic microvascular disease. 3. Prior left temporal craniotomy. Please note that all CT scans at this facility use dose modulation, iterative reconstruction, and/or weight-based dosing when appropriate to reduce radiation dose to as low as reasonably achievable. Dictated by Fidel Norris MD @ 07/22/2025 11:17:37 AM (Electronically Signed)
--- OUTSIDE RECORDS SUMMARY | 2025-07-22 10:49 | XMS_ITS | Clinical Summary ---
Author Organization [facility] Address [address] , [address] [place] [address] Phone Care Team Providers Care Draw Frame Operator Name Role [facility] Unavailable Unava ilable Conditions or Problems Problem Name Problem Code Onset Date Status Entry Date Provider Comment Standard Description Annotate Hand numbness 997352089 (SNOMED CT) Active Robert Zhao MD Numbness of hand Median neuropathy, right [id number] (SNOMED CT) Active Robert Zhao MD Median [...] Procedures Code Procedure Name Date Entry Date [id number]-47786 Nerve Conduction 9-10 studies CPT-63486 EMG with NCS (5+ muscles) - 1 limb 12/21 Vital Signs No information available. Immunizations No information available. Advance Directives No information available.
[2025-07-22] MEDS: ONDANSETRON ODT 4 MG TAB PO (10:56)
[2025-07-22] MEDS: MECLIZINE HCL 25 MG TABLET PO (10:56)
--- NOTE | 2025-07-22 11:02 | ED_ITS ---
HPI - Dizziness General Chief Complaint: Dizziness/Vertigo Stated Complaint: nausea, dizzy Time Seen by Provider: 07/22/25 10:25 History of Present Illness HPI Narrative: This 74-year-old female comes in because of an episode of dizziness that occurred prior to arrival as she was ambulating down some stairs at home. She states that this dizziness was a feeling of off balance. She did not have any lightheadedness. She did have some nausea and vomited once. She states that she is feeling better now. She has had episodes like this a few times over the past several months. They have all been rather transient. 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 She has been doing well since then. 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 She denies having any further hearing changes at this time. She arrives here with normal vital signs. Related Data Previous Rx's ?Medication ?Instructions ?Recorded pantoprazole 20 mg tablet,delayed 20 mg PO QDAY #90 ta bs 03/16/25 release (Protonix) sertraline 25 mg tablet (Zoloft) 25 mg PO QDAY #90 tab s 03/27/25 trazodone 100 mg tablet 100 mg PO QHS #180 tabs 03/09 01/02 ropinirole 1 mg tablet 2 mg (2 x 1 mg) PO TID #180 tabs 05/23/25 meclizine 25 mg tablet 25 mg PO QID #20 tabs Allergies Allergy/AdvReac Type Severity Reaction Status Date / Time cephalexin (From Keflex) Allergy Unknown Unknown Verified 07/22/25 10:20 codeine Allergy Unknown Extremely Verified 07/22/25 10:20 Sick eucalyptus Allergy Unknown Unknown Verified 07/22/25 10:20 escitalopram (From Lexapro) AdvReac Unknown Intolerance Verified 07/22/25 10:20 oxycodone AdvReac Unknown Unknown Verified 07/22/25 10:20 Review of Systems Status of ROS: Reports: 10 or more systems reviewed and unremarkable except as noted in History and below Narrative: Constitutional: No fevers, no weight gain or loss. Eyes: No discharge. No vision changes. HENT: No congestion, no sore throat, no ear pain. Cardiovascular: No chest pain, no palpitations. Respiratory: No shortness of breath, no wheezes, no cough. Gastrointestinal: No abdominal pain, no vomiting, no diarrhea. Genitourinary: No dysuria, no hematuria. Musculoskeletal: Normal range of motion. Skin: No rashes, no pruritis. Neurological: No weakness, sensory change, speech change. Off balance symptoms as described above. Endo/Heme/Allergies: No bruising or bleeding. No polydipsia. Pysch: no suicidality, no anxiety, no insomnia. All other systems reviewed and are negative. PFSH PFS Medical History Syncope ?R55 - Syncope and collapse (ICD-10) GERD (gastroesophageal reflux disease) ?K21.9 - Gastro-esophageal reflux disease without esophagitis (ICD-10) Trigger thumb, left thumb ?M65.312 - Trigger thumb, left thumb (ICD-10) Insomnia ?G47.00 - Insomnia, unspecified (ICD-10) Restless leg syndrome ?G25.81 - Restless legs syndrome (ICD-10) Surgical History History of carpal tunnel surgery of right wrist (01/18/25) ?Z98.890 - Other specified postprocedural states (ICD-10) Status post trigger finger release (11/09/24) ?Z98.890 - Other specified postprocedural states (ICD-10) Trigger thumb, right thumb (05/04/24) ?M65.311 - Trigger thumb, right thumb (ICD-10) History of cholecystectomy ?Z90.49 - Acquired absence of other specified parts of digestive tract (ICD- 10) History of hysterectomy ?Z90.710 - Acquired absence of both cervix and uterus (ICD-10) History of phacoemulsification of cataract of both eyes with intraocular lens implantation (2016) ?Z98.41 - Cataract extraction status, right eye (ICD-10) ?Z98.42 - Cataract extraction status, left eye (ICD-10) ?Z96.1 - Presence of intraocular lens (ICD-10) Status post excision of acoustic neuroma ?Z98.890 - Other specified postprocedural states (ICD-10) ?Z86.018 - Personal history of other benign neoplasm (ICD-10) Social History (Updated 03/29/25 @ 15:24 by Katty Niño ~ CTA) Narrative: Retired middle school science teacher. Disabled. Nonsmoker. What is your current living situation?: I presently have a place to live Problems where you live: no known problems In the past 12 months, utilities in danger of being shut off: no In past 12 months, lack of transportation kept you from medical appts, meetings, work, or getting things needed for daily living: no In the past 12 mos, have been you worried that your food would run out before you had money to buy more?: never true In the past 12 mos, the food you bought just didn't last and you didn't have money to buy more?: never true Smoking Status: Never smoker How often does anyone, including family, friends and others, physically hurt you : never How often does anyone, including family, friends and others, insult or talk down to you: never How often does anyone, including family, friends and others, threaten you with harm: never How often does anyone, including family, friends and others, scream or curse at you: never Exam Narrative: Exam Narrative: Constitutional: Well-developed, well-nourished, no acute distress. HEENT: Normocephalic, atraumatic. Neck: Normal range of motion. Nontender. Supple. Heart: Regular. No murmurs. Normal rate. Intact distal pulses. Lungs: Clear to auscultation. No chest discomfort. No wheezes, rhonchi, or rales. Abdomen: Normal bowel sounds. Nontender. No rebound tenderness. Genitalia: Deferred. Back: No midline tenderness. Normal range of motion. Extremities: Normal range of motion. No injury. Skin: Intact. No rash. Warm. No erythema or pallor. Neurologic: No altered sensation. No weakness. Alert and oriented. No hearing on the left side because of surgery to remove an acoustic neuroma. Speech is normal. No unilateral weakness. Psychiatric: No suicidality. No anxiety or depression. No insomnia. Nursing notes and vitals signs are reviewed. Const: Vital Signs, click to edit/add: Vital Signs - 24 hr 07/22/25 10:11 Temperature 98.2 F Pulse Rate [Pulse Oximeter] 71 Respiratory Rate 16 Blood Pressure [Ri ght Upper Arm] 119/74 Pulse Oximetry 95 Oxygen Delivery Me thod Room Air Course Vital Signs Vital signs: Initial Vital Signs Temperature 98.2 F 07/22/25 10:11 Temperature Source Temporal Artery Scan 07/22/25 10:11 Pulse Rate 71 07/22/25 10:11 Respiratory Rate 16 07/22/25 10:11 Blood Pressure 119/74 07/22/25 10:11 Blood Pressure Mean 89 07/22/25 10:11 Blood Pressure Position Sitting 07/22/25 10:11 Pulse Oximetry 95 07/22/25 10:11 Oxygen Delivery Method Room Air 07/22/25 10:11 Vital Signs Temperature 98.2 F 07/22/25 10:11 Pulse Rate 71 07/22/25 10:11 Respiratory Rate 16 07/22/25 10:11 Blood Pressure 119/74 07/22/25 10:11 Pulse Oximetry 95 07/22/25 10:11 Oxygen Delivery Method Room Air 07/22/25 10:11 Temperature 98.2 F 07/22/25 10:11 Pulse Rate 71 07/22/25 10:11 Respiratory Rate 16 07/22/25 10:11 Blood Pressure 119/74 07/22/25 10:11 Pulse Oximetry 95 07/22/25 10:11 Oxygen Delivery Method Room Air 07/22/25 10:11 Medications Administered Medications: Discontinued Medications Generic Name Dose Route Start Last Admin Trade Name Michelle PRN Reason Stop Dose Admin Meclizine HCl 25 mg 07/22/25 10:42 07/22/25 10:56 Meclizine Hcl 25 Mg Tablet PO 07/22/25 10:43 25 mg ONCE ONE Administration Ondansetron HCl 4 mg 07/22/25 10:42 07/22/25 10:56 Ondansetron Odt 4 Mg Tab PO 07/22/25 10:43 4 mg ONCE ONE Administration MDM - Dizziness MDM Narrative Medical decision making narrative: This patient comes in reporting a brief episode of feeling off balance. She did not fall but did have some associated nausea and 1 episode of vomiting. She arrives here feeling much better and has normal vital signs and normal exam. She did have an acoustic neuroma that was surgically removed about 20 years ago. She has been doing well since then but was told around that time that the gamma knife radiation could have some consequences 20 years or so later. I did obtain a CT scan of her head here which shows no acute findings. I did also discuss lab and other imaging options which the patient declined for now. I did state that a MRI may be better information but this study is not available for us now here. She is not showing any sign of neurologic deficit. She was able to get up and ambulate normally. She is okay to be discharged home. She did receive an oral dose of meclizine and I provided a prescription for the same. Imaging Data CT scan - head: Radiologist's impression: 1. No acute intracranial process. 2. Mild chronic ischemic microvascular disease. 3. Prior left temporal craniotomy. Discharge Plan Discharge Clinical Impression: Episodic ataxia Patient Disposition: Home, Self-Care Condition: Improved Additional Instructions: Use medication as needed and directed. Follow up with MD for ongoing management or return if symptoms are recurrent or worsening. Prescriptions: New meclizine 25 mg tablet 25 mg PO QID Qty: 20 0RF No Action trazodone 100 mg tablet 100 mg PO QHS Qty: 180 3RF pantoprazole [Protonix] 20 mg tablet,delayed release (DR/EC) 20 mg PO QDAY Qty: 90 0RF sertraline [Zoloft] 25 mg tablet 25 mg PO QDAY Qty: 90 1RF ropinirole 1 mg tablet 2 mg PO TID Qty: 180 0RF Follow Up/Referrals: Klaus Craig MD [Primary Care Provider, Internal Medicine] Stand Alone Forms: [employer] Info Instructions
== END 2025-07-22 12:24 | disposition home or self-care (01) ==
PROVIDERS: Emergency Provider Emergency Medicine Emergency Medical Services; PCP Internal Medicine
DX: R27.0 Ataxia, unspecified (principal)
CPT/HCPCS: 70450; 99283; 99284; A9270